=== PATIENT | female | born 1995 | race Two or more races ===

== ENCOUNTER → 2018-10-04 | Outpatient (CLI) | payer OTHER ==
--- NOTE | 2018-10-04 16:41 | RAD ---
THYROID ULTRASOUND History: Subclinical hyperthyroidism. Comparison: None. Technique: Multiple grayscale and color Doppler images of the thyroid gland were obtained. Findings: Measurements in length, AP (height), and transverse (width), respectively, unless otherwise stated. The isthmus measures 3 mm and is homogeneous. The right thyroid lobe measures 4.5 x 1.5 x 1.3 cm. The left thyroid lobe measures 4.4 x 1.3 x 1.6 cm. The thyroid gland is homogeneous. There is no discrete thyroid nodule. Color Doppler interrogation does not demonstrate hypervascularity. ACR Thyroid Imaging, Reporting And Data System (TI-RADS): White Paper Of The ACR TI-RADS Committee. Journal of the [employer], volume 14, issue 5, pages 587-595 (January 2017). IMPRESSION: Normal thyroid ultrasound. Electronically signed by: Alexis Richey MD (10/04/2018 4:36 PM) [id number]
== END | disposition home or self-care (01) ==
LOC: US 15:55
PROVIDERS: ATTEND Family Medicine
DX: E05.90 Thyrotoxicosis, unspecified without thyrotoxic crisis or storm (principal)
CPT/HCPCS: 76536